=== PATIENT | male | born 1975 | race Caucasian/White ===

== ENCOUNTER 2023-02-05 21:26 | Emergency (ER) | payer MEDICAID ==
[~2023-02-05] VITALS: Ht 170.2 cm; Wt 113.4 kg
--- NOTE | 2023-02-05 21:43 | NUR ---
SHAVON/83[facility] FROM [facility] FOR S/I WITH PLAN TO RUN INTO TRAFFIC -H/I RELAPSED YESTERDAY TOOK [employer]ETH. [employer] PLACING PT ON HOLD FOR DTS/DTO. A/OX4. TOLERATING R/A WELL WITH NO RESP DISTRESS. PT CHANGED IN GOWN, BELONGINGS COLLECTED AND IN LOCKER, WANDED BY SECURITY. SAFETY MEASURES IN PLACE.
--- NOTE | 2023-02-05 21:51 | NUR ---
[employer] TREAS[employer] AT PT'S BEDSIDE
--- NOTE | 2023-02-05 21:56 | NUR ---
COVID ANTIGEN SWAB AND URINE COLLECTED AND SENT TO LAB
[2023-02-05 22:02] LABS: BASOPHILS # (AUTO) 0.1 K/uL (0.0-0.2); BASOPHILS % (AUTO) 0.6 % (0.0-2.0); EOSINOPHILS % (AUTO) 0.7 % (0.0-6.0); HEMATOCRIT 51 % (39-51); HEMOGLOBIN 16.9 g/dL (13.5-17.5); LYMPHOCYTES # (AUTO) 2.1 K/uL (0.8-4.8); LYMPHOCYTES % (AUTO) 20.7 % (20.0-44.0); MEAN CORPUSCULAR HGB CONC 33 g/dl (31.0-36.0); MEAN CORPUSCULAR VOLUME 91 fL (80-96); MONOCYTES # (AUTO) 0.8 K/uL (0.1-1.30); MONOCYTES % (AUTO) 7.5 % (2.0-12.0); NEUTROPHILS # (AUTO) 7.1 K/uL (1.8-8.9); NEUTROPHILS % (AUTO) 70.5 % (43.0-81.0); PLATELET COUNT (AUTO) 177 K/uL (150-450); RED BLOOD CELL COUNT(AUTO) 5.59 MIL/uL (4.5-6.0); WHITE BLOOD COUNT (AUTO) 10.1 K/uL (4.3-11.0)
[2023-02-05 22:07] LABS: BILIRUBIN,URINE 2+ (NEGATIVE); COLOR,URINE ORANGE (YELLOW); LEUKOCYTE ESTERASE ,URINE NEGATIVE (NEGATIVE); NITRITE, URINE NEGATIVE (NEGATIVE); PH,URINE 5.5 (5.0-8.0); PROTEIN,URINE 1+ mg/dl (NEGATIVE); UGLUCOSE NEGATIVE (NEGATIVE)
[2023-02-05 22:25] LABS: CALCIUM, SERUM 9.7 mg/dL (8.5-10.1); CARBON DIOXIDE 29 mmol/L (21-32); CHLORIDE 102 mmol/L (98-107); CREATININE 1.6 mg/dL (0.6-1.3); GLUCOSE 97 mg/dL (74-106); POTASSIUM 3.6 mmol/L (3.5-5.1); SODIUM SERUM 140 mmol/L (136-145); UREA NITROGEN, BLOOD 21 mg/dL (7-18)
[2023-02-05 22:30] LABS: ALANINE AMINOTRANSFERASE 236 U/L (12-78); ALBUMIN 4.1 g/dL (3.4-5.0); ALCOHOL, BLOOD < 3 mg/dL (0-0); ALKALINE PHOSPHATASE 94 U/L (46-116); ASPARTATE AMINOTRANSFERASE 325 U/L (15-37); BILIRUBIN,DIRECT 0.3 mg/dL (0.0-0.2); BILIRUBIN,TOTAL 0.9 mg/dL (0.2-1.0); TOTAL PROTEIN, SERUM 8.2 g/dL (6.4-8.2)
--- NOTE | 2023-02-06 00:12 | NUR ---
CALLED NATY LOPEZ, FOR PSYCH EVAL. AWAITING CALL BACK
[2023-02-06] MEDS ORDERED: LORAZEPAM INJ 2 MG/ML VIAL ONE (01:19)
[2023-02-06] MEDS ORDERED: HALOPERIDOL LACTATE INJ 5 MG/ML VIAL ONE (01:19)
[2023-02-06] MEDS ORDERED: diphenhydrAMINE HCL 50 MG/ML VIAL ONE (01:19)
--- NOTE | 2023-02-06 01:35 | NUR ---
pt because agitated. started yelling and pulling on the bed. md was at the bedside. medications order received.
[2023-02-06] MEDS ORDERED: HALOPERIDOL LACTATE INJ 5 MG/ML VIAL IM ONE (02:00)
[2023-02-06] MEDS ORDERED: diphenhydrAMINE HCL 50 MG/ML VIAL IM ONE (02:00)
[2023-02-06] MEDS ORDERED: LORAZEPAM INJ 2 MG/ML VIAL IM ONE (02:00)
[2023-02-06 02:01] LABS: BACTERIA,URINE Rare /HPF (None Seen); CALCIUM OXALATE CRYSTALS,UR Few /HPF (None Seen); RBC,URINE 0-2 /HPF (0-2); SQUAMOUS EPITHELIAL CELL,UR Moderate /HPF (None Seen); WBC,URINE 0-2 /HPF (0-3)
[2023-02-06 02:02] LABS: URINE AMORPHOUS URATE Few /HPF (None Seen)
--- NOTE | 2023-02-06 05:43 | NUR ---
PT SLEEPING. RR EVEN AND NON LABORED. ALL NEEDS MET AT THIS TIME. VSS. SAFETY MEASURES IN PLACE.
--- NOTE | 2023-02-06 06:15 | NUR ---
NATY CALLED BACK AND AWARE THAT PT NEEDS PSYCH EVAL.
--- NOTE | 2023-02-06 06:46 | NUR ---
PER NATY OROZCO [place] CRISIS TEAM WILL EVAL PT
--- NOTE | 2023-02-06 07:00 | NUR ---
PATIENT IS AWAKE , NO SIGNS AND SYMPTOMS OF DISTRESS, AOX4, UNLABORED BREATHING.
--- NOTE | 2023-02-06 07:05 | NUR ---
[facility]UK[facility] CRISIS TEAM AT PT'S BEDSIDE FOR EVAL
--- NOTE | 2023-02-06 07:40 | NUR ---
HOLD IS BROKEN PER CLINICIAN
[2023-02-06 09:12] VITALS: BP 126/77
== END 2023-02-06 09:16 | disposition home or self-care (01) ==
LOC: ER 21:37
DX: R45.851 Suicidal ideations (principal); I10 Essential (primary) hypertension; Z20.822 Contact with and (suspected) exposure to COVID-19; Z60.2 Problems related to living alone
CPT/HCPCS: 99285; 85025; 80048; 80076; 81001; 36415; 87426; 80143; 80320; 80307; 96372 ×2; C9803; J2060; J1200; J1630; G0480

== ENCOUNTER 2023-11-09 07:43 | Emergency (ER) | payer OTHER ==
[~2023-11-09] VITALS: Ht 154.9 cm; Wt 68.0 kg
[~2023-11-09 07:43] MED LIST: CIPR7.5D9 EACH EAR
[2023-11-09 10:29] VITALS: BP 131/77; TEMP 98.7; O2SAT 95
== END 2023-11-09 10:30 | disposition home or self-care (01) ==
LOC: ER 08:10
DX: U07.1 COVID-19 (principal); Z60.2 Problems related to living alone

== ENCOUNTER 2024-08-28 12:55 | Emergency (ER) | payer OTHER ==
[~2024-08-28] VITALS: Ht 154.9 cm; Wt 75.7 kg
[2024-08-28] MEDS ORDERED: TAMS-12 PO (13:49)
[2024-08-28 13:58] VITALS: BP 128/86; TEMP 97.8; O2SAT 97
== END 2024-08-28 14:10 ==
LOC: ER 13:01
DX: R33.9 Retention of urine, unspecified (principal); R10.30 Lower abdominal pain, unspecified; F19.10 Other psychoactive substance abuse, uncomplicated; Z60.2 Problems related to living alone

== ENCOUNTER 2024-10-04 03:48 | Emergency (ER) | payer OTHER ==
[~2024-10-04] VITALS: Ht 157.5 cm; Wt 72.6 kg
[~2024-10-04 03:48] MED LIST changes: +TAMS-12 PO
[2024-10-04 05:34] VITALS: BP 134/70; TEMP 98.1; O2SAT 97
[2024-10-04] MEDS ORDERED: Magnesium 1GM/D5W 100ML PREMIX 100 ML IV SCH (06:00)
[2024-10-04] MEDS ORDERED: IBUPROFEN 600 MG TABLET ONE (06:26)
[2024-10-04] MEDS: IBUPROFEN 600 MG TABLET PO ONE (06:29)
[2024-10-05] MEDS ORDERED: IBUP-1955 PO (08:30)
[2024-10-05] MEDS ORDERED: TAMS-12 PO (08:30)
[2024-10-05] MEDS ORDERED: CEFD300C3 PO (08:30)
[2024-10-05] MEDS ORDERED: BENZ-13 PO (08:30)
== END 2024-10-04 06:31 | disposition home or self-care (01) ==
LOC: ER 03:52
DX: M79.10 Myalgia, unspecified site (principal); R21 Rash and other nonspecific skin eruption; M79.671 Pain in right foot; M79.672 Pain in left foot; F17.200 Nicotine dependence, unspecified, uncomplicated; Z59.00 Homelessness unspecified

== ENCOUNTER 2024-10-05 05:49 | Emergency (ER) | payer OTHER ==
[~2024-10-05] VITALS: Ht 180.3 cm; Wt 65.8 kg
[2024-10-05 07:13] LABS: CALCIUM, SERUM 8.8 mg/dL (8.5-10.1); CREATININE 0.9 mg/dL (0.6-1.3); POTASSIUM 3.2 mmol/L (3.5-5.1)
[2024-10-05 07:20] LABS: ALBUMIN 3.8 g/dL (3.4-5.0); BILIRUBIN,DIRECT 0.2 mg/dL (0.0-0.2); BILIRUBIN,TOTAL 0.7 mg/dL (0.2-1.0); TOTAL PROTEIN, SERUM 6.8 g/dL (6.4-8.2)
[2024-10-05 07:22] LABS: BASOPHILS % (AUTO) 0.1 % (0.0-2.0); EOSINOPHILS # (AUTO) 0.1 K/uL (0.0-0.7); EOSINOPHILS % (AUTO) 1.5 % (0.0-6.0); HEMATOCRIT 44 % (39-51); HEMOGLOBIN 15.3 g/dL (13.5-17.5); LYMPHOCYTES # (AUTO) 1.1 K/uL (0.8-4.8); LYMPHOCYTES % (AUTO) 12.3 % (20.0-44.0); MEAN CORPUSCULAR HEMOGLOBIN 33 PG (26.0-33.0); MEAN CORPUSCULAR HGB CONC 35 g/dl (31.0-36.0); MEAN CORPUSCULAR VOLUME 93 fL (80-96); MONOCYTES # (AUTO) 0.6 K/uL (0.1-1.30); MONOCYTES % (AUTO) 7.1 % (2.0-12.0); NEUTROPHILS # (AUTO) 6.9 K/uL (1.8-8.9); PLATELET COUNT (AUTO) 229 K/uL (150-450); RED CELL DISTRIBUTION WIDTH 12.5 % (11.5-15.0); WHITE BLOOD COUNT (AUTO) 8.8 K/uL (4.3-11.0)
[2024-10-05 07:24] LABS: APPEARANCE,URINE TURBID (CLEAR); COLOR,URINE DARK YELLOW (YELLOW)
[2024-10-05 07:25] LABS: ADD URINE CULTURE YES; BACTERIA,URINE Moderate /HPF (None Seen); BILIRUBIN,URINE NEGATIVE (NEGATIVE); BLOOD, URINE SMALL Ery/uL (NEGATIVE); KETONES,URINE NEGATIVE (NEGATIVE); LEUKOCYTE ESTERASE ,URINE 3+ (NEGATIVE); NITRITE, URINE POSITIVE (NEGATIVE); PROTEIN,URINE 1+ mg/dl (NEGATIVE); SQUAMOUS EPITHELIAL CELL,UR Few /HPF (None Seen); UGLUCOSE NEGATIVE (NEGATIVE); UROBILINOGEN,URINE 0.2 EU/dL (0.2); WBC,URINE TOO NUMEROUS TO COUN /HPF (0-3)
[2024-10-05] MEDS ORDERED: IBUPROFEN 600 MG TABLET ONE (07:33)
[2024-10-05] MEDS: IBUPROFEN 600 MG TABLET PO ONE (07:41)
[2024-10-05] MEDS ORDERED: CEFTRIAXONE 1GM BAG (ER ONLY) 50 ML IV ONE (08:28)
[2024-10-05] MEDS ORDERED: CEFD300C3 PO (08:30)
[2024-10-05] MEDS ORDERED: TAMS-12 PO (08:30)
[2024-10-05] MEDS ORDERED: BENZ-13 PO (08:30)
[2024-10-05] MEDS ORDERED: IBUP-1955 PO (08:30)
[2024-10-05] MEDS: CEFTRIAXONE 1 G in IV D5W 50 ML IV ONE (08:53)
[2024-10-05 09:39] VITALS: BP 132/74; TEMP 98.3; O2SAT 99
== END 2024-10-05 09:39 | disposition home or self-care (01) ==
LOC: ER 05:54
DX: N39.0 Urinary tract infection, site not specified (principal); J06.9 Acute upper respiratory infection, unspecified; F17.200 Nicotine dependence, unspecified, uncomplicated; M54.50 Low back pain, unspecified; R07.9 Chest pain, unspecified; Z59.00 Homelessness unspecified
CPT/HCPCS: 99284; 96365; 71045; 85025; 80048; 87086; 83690; 80076; 81001; 36415; A4223; J0696; J7060

== ENCOUNTER 2024-10-05 16:50 | Emergency (ER) | payer OTHER ==
[~2024-10-05] VITALS: Ht 180.3 cm; Wt 65.8 kg
[~2024-10-05 16:50] MED LIST changes: +BENZ-13 PO; +CEFD300C3 PO; +IBUP-1955 PO
[2024-10-05 16:51] VITALS: BP 116/49; TEMP 98.3; O2SAT 99
== END 2024-10-05 21:00 | disposition left against medical advice (07) ==
LOC: ER 17:06
DX: R10.9 Unspecified abdominal pain (principal); Z53.21 Procedure and treatment not carried out due to patient leaving prior to being seen by health care provider

== ENCOUNTER 2024-11-04 05:34 | Emergency (ER) | payer OTHER | END 2024-11-04 06:27 | disposition left against medical advice (07) | LOC: ER 05:37 | DX: R10.9 Unspecified abdominal pain (principal); Z53.21 Procedure and treatment not carried out due to patient leaving prior to being seen by health care provider ==